=== PATIENT | female | born 2000 | race Caucasian/White ===

== ENCOUNTER 2023-11-12 21:55 | Emergency (ER) | payer OTHER, SELFPAY ==
[2023-11-12 21:57] VITALS: BP 123/87
--- NOTE | 2023-11-12 22:06 | ED.GENMED ---
History of Present Illness
<ERVIN Luther - Last Filed: 11/13/23 00:06>
General
Chief Complaint: Head Injury
Source: patient
Exam Limitations: none
Time Seen by Provider: 11/12/23 22:06
Nursing documentation reviewed up to this point in time: agreed with
History of Present Illness
History of Present Illness:
23 year old female presents for evaluation of a head injury. Pt states that a flower pot fell onto the left side of her head while she was standing on a step stool removing a hanging ceiling plant approximately 1.5 hours ago. Pt notes that the
flower pot was approximately 12 inches above her head when she was struck. No LOC reported. Pt currently endorses mild nausea as well as left-sided MIRAMONTES confined to the left frontal and parietal areas that is 7/10 in severity. She has not vomited. Pt
has not taken any medications for her MIRAMONTES. She also endorses right-sided rib tenderness due to, 'flinching when the pot fell onto me. It feels like I strained something.' No SOB or CP reported. Pt denies dizziness, changes in vision, bleeding, loss
of balance and loss of strength. She currently takes Abilify and Trazodone daily but does not take any blood thinners.
Past History
<ERVIN Luther - Last Filed: 11/13/23 00:06>
Past History
ED Past Medical History: GERD and Psychiatric (ADHD, anxiety)
ED Past Surgical History: Appendectomy
Social History
Tobacco: Non-smoker (vape)
Alcohol: None
Drug: Marijuana
Personal: Single
Living: with family
Family History
Family History: Other (Kidney stones and gallbladder disease)
Review of Systems
<ERVIN Luther - Last Filed: 11/13/23 00:06>
Review of Systems
Allergies reviewed?: Yes
Constitutional: Reports no symptoms
EENT: Reports no symptoms
Respiratory: Reports no symptoms
Cardiac: Reports no symptoms
ABD/GI: Reports nausea (mild, no emesis reported )
Musculoskeletal: Reports other (right rib pain )
Skin: Reports no symptoms
Neurological: Reports headache
Endocrine: Reports no symptoms
Hematologic/Lymphatic: Reports no symptoms
Psychiatric: Reports no symptoms
Phy Exam
<ERVIN Luther - Last Filed: 11/13/23 00:06>
General Physical Exam
General Presentation: well appearing
General age: appears stated age
General Skin: warm
General Habitus: normal
General Mental: alert
General Hydration: appears well hydrated
ENT Exam
ENT Exam: EOMI, TM's normal (no hemotympanum ) and other (Mild erythema and swelling over left frontal and parietal regions of the skull. No lacerations/bleeding)
Additional ENT: Negative Rosenberg sign, no periorbital ecchymosis
Eye Exam
Eye Exam: PERRL and EOMI
Cardiovascular Exam
Cardiovascular Exam: regular rate/rhythm
Pulmonary Exam
Pulmonary Exam: lungs clear and no respiratory distress
Neurological Exam
Neurological Exam: alert, oriented x3, no motor deficits, no sensory deficits and speech normal
Musculoskeletal Exam
Musculoskeletal Exam: other (Right intercostal tenderness between 4th and 5th ribs )
Psychiatric Exam
Psychiatric Exam: normal mood/affect
Scores
<ERVIN Luther - Last Filed: 11/13/23 00:06>
PECARN >2 YEARS
GCS <15: No
Signs basilar skull fracture: No
LOC: No
Patient vomiting: No
Severe headache: No
Severe mechanism: No
If any criteria positive, consider head CT: No
<Demar Machado DO - Last Filed: 11/13/23 00:02>
PECARN >2 YEARS
If any criteria positive, consider head CT: No
Course
<ERVIN Luther - Last Filed: 11/13/23 00:06>
Orders/Labs/Results
Orders:
Orders
11/12/23 22:40
CT Head W/o Iv Contrast Urgent
Comment:
Reason For Exam: head injury
11/12/23 22:55
Ondansetron Orally Disint [Zofran Odt (Orally Disintegrating)] 4 mg PO NOW STA
Vital Signs
Initial and Last Documented VS:
Initial Vital Signs
Temp Pulse Resp BP Pulse Ox
97.9 F 74 18 123/87 99
11/12/23 21:57 11/12/23 21:57 11/12/23 21:57 11/12/23 21:57 11/12/23 21:57
Last Documented Vital Signs
Temp Pulse Resp BP Pulse Ox
97.9 F 74 18 123/87 99
11/12/23 21:57 11/12/23 21:57 11/12/23 21:57 11/12/23 21:57 11/12/23 21:57
<Demar Machado DO - Last Filed: 11/13/23 00:02>
Orders/Labs/Results
Orders:
Orders
11/12/23 22:40
CT Head W/o Iv Contrast Urgent
Comment:
Reason For Exam: head injury
11/12/23 22:55
Ondansetron Orally Disint [Zofran Odt (Orally Disintegrating)] 4 mg PO NOW STA
Vital Signs
Initial and Last Documented VS:
Initial Vital Signs
Temp Pulse Resp BP Pulse Ox
97.9 F 74 18 123/87 99
11/12/23 21:57 11/12/23 21:57 11/12/23 21:57 11/12/23 21:57 11/12/23 21:57
Last Documented Vital Signs
Temp Pulse Resp BP Pulse Ox
97.9 F 74 18 123/87 99
11/12/23 21:57 11/12/23 21:57 11/12/23 21:57 11/12/23 21:57 11/12/23 21:57
<ERVIN Luther - Last Filed: 11/13/23 00:06>
MDM/Problems Addressed
Differential Diagnosis Includes:
Contusion of left cerebrum, concussion, epidural hematoma, subdural hematoma
<ERVIN Luther - Last Filed: 11/13/23 00:06>
*Critical Care Note
Total Time (30-74mins, 75-104mins- exclusive of procedures): Not Applicable
<Demar Machado DO - Last Filed: 11/13/23 00:02>
*Critical Care Note
Total Time (30-74mins, 75-104mins- exclusive of procedures): Not Applicable
<ERVIN Luther - Last Filed: 11/13/23 00:06>
Update Note
Update Note:
11:59pm - Pt informed of CT results, feeling well overall with no current questions.
ED Attending Note
<ERVIN Luther - Last Filed: 11/13/23 00:06>
-
Portions of this chart may have been created with voice recognition software.� Occasional wrong word or��sound alike� substitutions may have occurred due to the inherent limitations of voice recognition software.
<Demar Machado DO - Last Filed: 11/13/23 00:02>
ED Attending Note
Patient seen and examined by attending physician: Yes
I performed the substantive portion of visit, reviewed & personally made and approve the management plan that is documented in note by myself or XI.: Yes
ED Attending Note:
Pleasant 23-year-old female who in the process of moving was taking down a flowerpot. She was on a ladder and the pot worked its way free and struck her on the head. She states that the pot hit her from a distance of 3 feet. She did not pass out
but she did have a headache and had blurry vision for few seconds. She denies any neck pain. She is sore at the site of the injury on her left parietal scalp. Patient is not on any blood thinners. She was able to get down off the ladder and
ambulate normally. She is here for evaluation. Patient was seen in conjunction with the PA student. I have reviewed and agree with the history and treatment plan presented. On my independent physical exam, patient is awake, alert, and oriented
x3 minimal to no acute distress. She does have tenderness to palpation on the left scalp. There is no crepitus or step-off. There is no vertical or horizontal nystagmus. Her pupils are dilated but they are reactive. She is in no respiratory
distress.
Discharge Plan
Departure
Patient Disposition: Home (Routine Discharge)
Date of Disposition: 11/13/23
Time of Disposition: 00:02
Patient with high blood pressure during this ER visit?: No
Condition: Good
Covid-19: Not Applicable
Discharge Problem:
Closed head injury
Instructions: Concussion, Adult (DC), Head Injury in Adults (DC), Head injury observation in adults
Prescriptions:
No Action
ondansetron HCl [Zofran] 4 mg Tablet
4 mg PO Q8H
NuvaRing
diazepam [Valium] 2 mg Tablet
2 mg PO HS PRN (Reason: anxiety)
Referrals:
Donnie Fairchild I., DO [Family Provider] -
Activity Restrictions/Additional Instructions:
It was a pleasure meeting you and taking part in your care. We hope for your continued healing and wellness.
Please read discharge instructions in their entirety. However, they are for general education and may not describe your exact diagnosis at discharge. Information on your ER visit and medical conditions were discussed with you along with appropriate
follow up information...
If indicated, please take your medications as instructed and indicated on discharge paperwork.
Please schedule a follow up appointment as directed. Call to schedule an appointment
Please return to the emergency department with ANY change in, persisting, or worsening of symptoms. If any of your symptoms do not improve, or persist, or become more severe within 6-12 hours, please return to the emergency department for further
care.
Please return to the emergency department if you develop a headache, neck pain/stiffness, fever greater than 100.4F, chest pain, shortness of breath, persistent nausea, vomiting, slurred speech, difficulty walking, numbness/tingling, weakness, signs
of infection or any other symptoms that are worrisome to you.
If you have any questions or concerns please do not hesitate to call the Hospital at or E-mail me directly at [email or web address]
Interventions
Interventions:
*Risk Screen - Suicide Last Done: 11/12/23 21:57
*General Assessment Last Done: 11/12/23 21:57
*Neglect/Abuse Screening Last Done: 11/12/23 21:57
ED- Neurological Assessment Last Done: 11/12/23 22:34
ED-Skin Assessment Last Done: 11/12/23 22:34
Discharge Date and Time
Print Language: PORTUGUESE
[2023-11-12] MEDS: ZOFRAN ODT (ORALLY DISINTEGRATING) 4 MG PO (22:58)
== END 2023-11-13 00:24 | disposition home or self-care (01) ==
LOC: EMR 21:55
PROVIDERS: EMERGENCY PHYSICIAN Student in an Organized Health Care Education/Training Program; FAMILY PHYSICIAN Internal Medicine
DX: S09.90XA Unspecified injury of head, initial encounter (principal); W20.8XXA Other cause of strike by thrown, projected or falling object, initial encounter
CPT/HCPCS: 99284; 70450

== ENCOUNTER 2024-05-06 18:17 | Emergency (ER) | payer OTHER, SELFPAY ==
[2024-05-06 18:30] VITALS: BP 118/80
--- NOTE | 2024-05-06 18:34 | ED.GENMED ---
ED Provider Triage
<Elijah Smith PA-C - Last Filed: 05/06/24 18:38>
-
Patient seen by provider in Triage?: Seen in Triage
24-year-old female with prior history of cholecystectomy and appendectomy presents with 4 days worth of worsening right lower abdominal pain. She also notes nausea vomiting and some diarrhea. No personal or family history of inflammatory bowel
disease. She denies any obvious blood in the stool
Patient very tender on exam to the right lower abdomen. Pain is getting worse with vomiting. She has multiple abdominal surgeries.. Consider bowel obstruction versus colitis versus enteritis versus ovarian cyst. Given the tenderness CT was
ordered with oral contrast. Will order labs and urinalysis as well
Patient seen by provider in triage but warrants further assessment
History of Present Illness
<Elijah Smith PA-C - Last Filed: 05/06/24 18:38>
General
Chief Complaint: Abdominal Pain
Time Seen by Provider: 05/06/24 21:37
<Alexander Patterson Jr., PA-C - Last Filed: 05/06/24 22:40>
General
Source: patient and spouse
Exam Limitations: none
Nursing documentation reviewed up to this point in time: agreed with
History of Present Illness
History of Present Illness:
24-year-old female with past medical history of GERD previous cholecystectomy and appendectomy presenting to the emergency department today with concerns of right-sided abdominal pain over the past 4 day. Denies nausea vomiting diarrhea. Has had
similar symptoms in the past intermittently. Denies seemingly being related to menstrual cycles denies changes in urination fevers upper respiratory symptoms.
Past History
<Elijah Smith PA-C - Last Filed: 05/06/24 18:38>
Past History
ED Past Medical History: GERD and Psychiatric (ADHD, anxiety)
ED Past Surgical History: Appendectomy
Social History
Tobacco: Non-smoker (vape)
Alcohol: None
Drug: Marijuana
Personal: Single
Living: with family
Family History
Family History: Other (Kidney stones and gallbladder disease)
Review of Systems
<Alexander Patterson Jr., PA-C - Last Filed: 05/06/24 22:40>
Review of Systems
Allergies reviewed?: Yes
All Other Systems: ROS reviewed and negative except as documented in HPI and ROS
Phy Exam
<Alexander Patterson Jr., PA-C - Last Filed: 05/06/24 22:40>
Physical Exam
Physical Exam:
GENERAL: Alert , in no apparent distress
EYE: pupils equal and reactive
NECK: Supple, no significant adenopathy.
ENT: o/p clr, mmm.
CARDIAC: Regular rate and rhythm .
LUNGS: Clear breath sounds bilaterally, no acute respiratory distress, no wheezes/rales/rhonchi
ABDOMEN: Soft, without focal tenderness, no r/g, no cvat
NEUROLOGICAL: Alert and oriented, no focal neuro deficits
SKIN: Warm and dry, skin intact.
MUSCULOSKELETAL: No edema, well perfused.
PSYCH: Normal and appropriate interaction.
Course
<Elijah Smith PA-C - Last Filed: 05/06/24 18:38>
Orders/Labs/Results
Orders:
Orders
05/06/24 18:31
Iohexol [Omnipaque] See Protocol PO NOW STA
Test Result ONCE
05/06/24 18:33
CT Abd/pel W Iv And Oral Contr Urgent
Comment:
Reason For Exam: right abdominal pain
05/06/24 18:53
Complete Blood Count/With Diff Urgent
Urinalysis Reflex To Culture Urgent
Date Specimen was Collected: 05/06/24
Time Specimen was Collected: 18:36
Urine Microscopic Reflex Cult Urgent
Urine Culture Urgent
LAILA Source: U
Specimen Description:
Date Specimen was Collected: 05/06/24
Time Specimen was Collected: 18:36
05/06/24 18:59
Comprehensive Metabolic Panel Urgent
HCG, Serum Qualitative Screen Urgent
Abnormal Lab Results
05/06/24 05/06/24
18:53 18:59
BUN 6 L mg/dl
(7-17)
Glucose 105 H mg/dl
(70-99)
Leukocyte Esterase Rfl 1+ A
(Negative)
Urine WBC (Reflex) 11-15 A /HPF
(0-5)
Urine Bacteria (Reflex) Few A
(Negative)
05/06/24 18:53
05/06/24 18:59
Vital Signs
Initial and Last Documented VS:
Initial Vital Signs
Temp Pulse Resp BP Pulse Ox
97.9 F 59 18 118/80 98
05/06/24 18:30 05/06/24 18:30 05/06/24 18:30 05/06/24 18:30 05/06/24 18:30
Last Documented Vital Signs
Temp Pulse Resp BP Pulse Ox
97.9 F 59 18 118/80 98
05/06/24 18:30 05/06/24 18:30 05/06/24 18:30 05/06/24 18:30 05/06/24 18:30
<Alexander Patterson Jr., PA-C - Last Filed: 05/06/24 22:40>
Orders/Labs/Results
Orders:
Orders
05/06/24 18:31
Iohexol [Omnipaque] See Protocol PO NOW STA
Test Result ONCE
05/06/24 18:33
CT Abd/pel W Iv And Oral Contr Urgent
Comment:
Reason For Exam: right abdominal pain
05/06/24 18:53
Complete Blood Count/With Diff Urgent
Urinalysis Reflex To Culture Urgent
Date Specimen was Collected: 05/06/24
Time Specimen was Collected: 18:36
Urine Microscopic Reflex Cult Urgent
Urine Culture Urgent
LAILA Source: U
Specimen Description:
Date Specimen was Collected: 05/06/24
Time Specimen was Collected: 18:36
05/06/24 18:59
Comprehensive Metabolic Panel Urgent
HCG, Serum Qualitative Screen Urgent
Abnormal Lab Results
05/06/24 05/06/24
18:53 18:59
BUN 6 L mg/dl
(7-17)
Glucose 105 H mg/dl
(70-99)
Leukocyte Esterase Rfl 1+ A
(Negative)
Urine WBC (Reflex) 11-15 A /HPF
(0-5)
Urine Bacteria (Reflex) Few A
(Negative)
05/06/24 18:53
05/06/24 18:59
Vital Signs
Initial and Last Documented VS:
Initial Vital Signs
Temp Pulse Resp BP Pulse Ox
97.9 F 59 18 118/80 98
05/06/24 18:30 05/06/24 18:30 05/06/24 18:30 05/06/24 18:30 05/06/24 18:30
Last Documented Vital Signs
Temp Pulse Resp BP Pulse Ox
97.9 F 59 18 118/80 98
05/06/24 18:30 05/06/24 18:30 05/06/24 18:30 05/06/24 18:30 05/06/24 18:30
<Alexander Patterson Jr., PA-C - Last Filed: 05/06/24 22:40>
MDM/Problems Addressed
MDM/Problems Addressed:
24-year-old female presenting to the emergency department with right-sided abdominal pain. Described as sharp achy cramp. No nausea vomiting diarrhea or urinary symptoms. Upon arrival vital signs are normal labs unremarkable CT scan was obtained
that did not show any emergent findings. This does not appear to be consistent with any life-threatening etiology. Could be consistent with interval bowel syndrome was advised for close outpatient follow-up. Return precautions given.
<Alexander Patterson Jr., PA-C - Last Filed: 05/06/24 22:40>
*Critical Care Note
Total Time (30-74mins, 75-104mins- exclusive of procedures): Not Applicable
ED Attending Note
<Elijah Smith PA-C - Last Filed: 05/06/24 18:38>
-
Portions of this chart may have been created with voice recognition software.� Occasional wrong word or��sound alike� substitutions may have occurred due to the inherent limitations of voice recognition software.
Discharge Plan
Departure
Patient Disposition: Home (Routine Discharge)
Date of Disposition: 05/06/24
Time of Disposition: 22:35
Patient with high blood pressure during this ER visit?: No
Condition: Good
Covid-19: Not Applicable
Discharge Problem:
Abdominal pain
Instructions: Abdominal Pain
Prescriptions:
New
dicyclomine 20 mg tablet
20 mg PO QID PRN (Reason: abdominal pain) Qty: 7 0RF
No Action
ondansetron HCl [Zofran] 4 mg Tablet
4 mg PO Q8H
NuvaRing
diazepam [Valium] 2 mg Tablet
2 mg PO HS PRN (Reason: anxiety)
Referrals:
Nyasia Rolon, DO [Active] - Follow up in 5-7 days
Marilyn Garcia, DO [Active] - Follow up in 5-7 days
Caryl Nazario CRNP [Family Provider] -
Activity Restrictions/Additional Instructions:
You came to the emergency department today with concerns of abdominal discomfort. Here you had a reassuring assessment. Please follow closely with GI gynecology. Return to the emergency department any worsening, new or concerning symptoms.
Interventions
Interventions:
*Risk Screen - Suicide Last Done: 05/06/24 18:30
*General Assessment Last Done: 05/06/24 18:30
*ED COVID-19 Vaccine History Last Done: 05/06/24 18:30
Discharge Date and Time
Print Language: MICRONESIAN
[2024-05-06] MEDS: OMNIPAQUE 50 ML PO (18:50)
[2024-05-06 19:12] LABS: % Immature Granulocytes 0.1 % (0-0.5); % Lymphocytes 31.2 % (20.5-51.1); % Monocytes 5.2 % (1.7-9.3); % Neutrophils 61.5 % (42.2-75.2); Absolute Basophils 0.1 10^3/uL (0-0.2); Absolute Eosinophils 0.1 10^3/uL (0-0.7); Absolute Lymphocytes 2.4 10^3/uL (1.2-3.4); Absolute Monocytes 0.4 10^3/uL (0.1-0.6); Absolute Neutrophils 4.8 10^3/uL (1.4-6.5); Hematocrit 40.3 % (37.0-47.0); Hemoglobin 13.8 g/dL (12.0-16.0); Mean Corp Hgb Conc. 34.2 g/dL (33.0-37.0); Mean Corpuscular Hgb 28.9 pg (27.0-31.0); Mean Corpuscular Volume 84.3 fL (81.0-99.0); Mean Platelet Volume 9.2 fL (7.4-10.4); Nucleated Red Blood Cells % 0 %; Platelet Count 389 10^3/uL (130-400); Red Blood Cell Count 4.78 10^6/uL (4.20-5.40); Red Cell Dist. Width 11.9 % (11.5-14.5); White Blood Cell Count 7.8 10^3/uL (4.8-10.8)
[2024-05-06 19:22] LABS: HCG, Serum Qualitative Screen Negative
[2024-05-06 19:25] LABS: Urine Albumin Negative (Neg - Trace); Urine Bilirubin Negative (Negative); Urine Character Slightly Cloudy (Clear); Urine Color Yellow; Urine Glucose Negative (Negative); Urine Ketone Negative (Negative); Urine Leukocyte 1+ (Negative); Urine Nitrite Negative (Negative); Urine Occult Blood Negative (Negative); Urine Urobilinogen Negative (Neg - 1+)
[2024-05-06 19:25] LABS: ALT (SGPT) 35 U/L (0-35); AST (SGOT) 21 U/L (14-36); Albumin 4.2 g/dl (3.5-5.0); Alkaline Phosphatase 65 U/L (38-126); Blood Urea Nitrogen 6 mg/dl (7-17); Calcium 8.8 mg/dl (8.4-10.2); Carbon Dioxide 24 mmol/L (22-30); Chloride 103 mmol/L (98-107); Glucose 105 mg/dl (70-99); Potassium 3.8 mmol/L (3.5-5.1); Sodium 137 mmol/L (135-145); Total Bilirubin 0.3 mg/dl (0.2-1.3); Total Protein 6.8 g/dl (6.3-8.2); eGFR > 60.00
[2024-05-06 20:28] LABS: Urine Bacteria Few (Negative); Urine Red Blood Cell 0-2 /HPF (0-2); Urine Squamous Cell >30 /LPF (Few)
[2024-05-06 22:48] VITALS: BP 112/66
== END 2024-05-06 22:51 | disposition home or self-care (01) ==
LOC: EMR 18:17
PROVIDERS: Physician Assistant; EMERGENCY PHYSICIAN Student in an Organized Health Care Education/Training Program; FAMILY PHYSICIAN Nurse Practitioner Adult Health
DX: R10.9 Unspecified abdominal pain (principal); K21.9 Gastro-esophageal reflux disease without esophagitis; F17.290 Nicotine dependence, other tobacco product, uncomplicated; Z90.49 Acquired absence of other specified parts of digestive tract
CPT/HCPCS: 99284; 74177; 80053; 81003; 81015; 84703; 85025; 87086; Q9967

== ENCOUNTER → 2024-05-17 12:42 | Outpatient (REF) | payer OTHER, SELFPAY | LOC: HWRAD 12:42 | PROVIDERS: ATTENDING PHYSICIAN Obstetrics & Gynecology Gynecology; FAMILY PHYSICIAN Nurse Practitioner Adult Health | DX: R10.2 Pelvic and perineal pain (principal) | CPT/HCPCS: 76830; 76856 ==